=== PATIENT | female | born 2000 | race African-American/Black ===

== ENCOUNTER 2019-09-26 22:17 | Inpatient (IN) ==
[2019-09-26] MEDS ORDERED: TERBUTALINE 1 MG/1 ML VIAL SUBCUT PRN (22:34)
[2019-09-26] MEDS ORDERED: MEPERIDINE 50 MG/1 ML VIAL IV PRN (22:34)
[2019-09-26] MEDS ORDERED: LACTATED RINGERS 500 ML IV PRN (22:34)
[2019-09-26] MEDS ORDERED: ONDANSETRON 4 MG/2 ML VIAL IV PRN (22:34)
[2019-09-26] MEDS ORDERED: LACTATED RINGERS 1,000 ML IV SCH (23:00)
[2019-09-26 23:34] LABS: Basophils % 0.1 % (0.0-0.8); Eosinophils % 0.2 % (0.00-10.9); Hematocrit 33.2 VOL% (35.7-47.0); Hemoglobin 11.4 GM/DL (12.0-16.0); Immature Granulocytes % 0.7 %; Immature Granulocytes Absolute 0.06 #; Lymphocytes # 0.7 10*3/uL (1.4-4.0); Lymphocytes % 8.4 % (21.3-54.2); Mean Corpuscular HGB Conc 34.3 GM/DL (32-36); Mean Corpuscular Volume 93.3 FL (87-102); Mean Platelet Volume 9.8 FL (9.6-12.0); Neutrophils % 83.6 % (38.7-73.9); Platelet Count 231 T/CUMM (130-400); Red Blood Count 3.56 MC/CUMM (3.8-5.5); Red Cell Distribution Width 12.2 % (9.3-17.3); White Blood Count 8.6 T/CUMM (4-12)
[2019-09-27 01:08] LABS: Apearance,Urine CLEAR (Clear); Bilirubin,Urine Negative (Negative); Blood, Urine Negative (Negative); Calcium Oxalate Crystals,Urine Occasional /HPF (Few); Glucose,Urine (UA) Negative (Negative); Ketones,Urine 20 mg/dL (Negative); Mucus,Urine Occasional /LPF (Occasional); Nitrite,Urine Negative (Negative); Protein,Urine Negative; RBC,Urine 3 /HPF (0-4); Squamous Epithelial Cell,Urine Occasional /HPF (0-10); Urine Color Yellow (Yellow); Urine Specific Gravity 1.029 (1.001-1.035); WBC,Urine 3 /HPF (0-6)
[2019-09-27] MEDS ORDERED: ZALEPLON 5 MG CAPSULE PO ONE (03:29)
[2019-09-27] MEDS ORDERED: AMPICILLIN INJ 2,000 MG in SODIUM CHLORIDE 0.9% 100 ML IV ONE (04:00)
[2019-09-27] MEDS: BUTORPHANOL 2 MG/ML VIAL IV PRN ×2 (04:25→07:28)
[2019-09-27] MEDS ORDERED: OXYTOCIN/LR 20 UNIT/1,000 ML BAG IV SCH (07:30)
[2019-09-27] MEDS ORDERED: AMPICILLIN INJ 1,000 MG in SODIUM CHLORIDE 0.9% 100 ML IV SCH (08:00)
[2019-09-27] MEDS ORDERED: LIDOCAINE 1% 50 ML VIAL ONE (08:17)
[2019-09-27] MEDS ORDERED: miSOPROStoL 200 MCG TABLET ONE (08:18)
[2019-09-27] MEDS ORDERED: oxyCODONE/ACETAMINOPHEN 5-325 MG TABLET PO PRN ×2 (10:38)
[2019-09-27] MEDS ORDERED: BISACODYL 10 MG SUPP RECTAL PRN (10:38)
[2019-09-27] MEDS ORDERED: WITCH HAZEL PADS 100/JAR TOP PRN (10:38)
[2019-09-27] MEDS ORDERED: MEASLES/MUMPS/RUBELLA VACCINE 0.5 ML VIAL SUBCUT ONE (10:38)
[2019-09-27] MEDS ORDERED: ACETAMINOPHEN 325 MG TABLET PO PRN (10:38)
[2019-09-27] MEDS ORDERED: OXYTOCIN/LR 20 UNIT/1,000 ML BAG IV ONE (10:38)
[2019-09-27] MEDS ORDERED: LANOLIN 50% CREAM 0.3 OZ TUBE TOP PRN (10:38)
[2019-09-27] MEDS ORDERED: DIPH/TET/ACEL PERT BOOSTER VACCINE 0.5 ML VIAL IM ONE (10:38)
[2019-09-27] MEDS ORDERED: HYDROCORTISONE 2.5% RECTAL CREAM 30 GM TUBE TOP PRN (10:38)
[2019-09-27] MEDS ORDERED: BENZOCAINE 20%/MENTHOL 0.5% SPRAY 56 GM CAN TOP PRN (10:38)
[2019-09-27] MEDS ORDERED: ONDANSETRON 4 MG/2 ML VIAL IV PRN (10:38)
[2019-09-27] MEDS ORDERED: RHO(D) IMMUNE GLOBULIN 300 MCG SYRINGE IM ONE (10:38)
[2019-09-27 10:41] LABS: Cord Venous Blood HCO3 21.2 MMOL/L; Cord Venous Blood PCO2 53.8 MMHG; Cord Venous Blood PO2 23.6 MMHG
[2019-09-27] MEDS: DOCUSATE SODIUM 100 MG CAPSULE PO SCH (21:01)
[2019-09-27] MEDS: IBUPROFEN 800 MG TABLET PO PRN (21:34)
[2019-09-28] MEDS: IBUPROFEN 800 MG TABLET PO PRN ×3 (05:27→21:38)
[2019-09-28 06:07] LABS: Basophils % 0.2 % (0.0-0.8); Eosinophils % 0.1 % (0.00-10.9); Hematocrit 23.6 VOL% (35.7-47.0); Hemoglobin 7.9 GM/DL (12.0-16.0); Immature Granulocytes % 0.5 %; Immature Granulocytes Absolute 0.05 #; Lymphocytes # 0.9 10*3/uL (1.4-4.0); Lymphocytes % 9.9 % (21.3-54.2); Mean Corpuscular HGB Conc 33.5 GM/DL (32-36); Mean Corpuscular Volume 94.4 FL (87-102); Mean Platelet Volume 9.9 FL (9.6-12.0); Monocytes % 9.5 % (1.7-12.7); Neutrophils % 79.8 % (38.7-73.9); Platelet Count 166 T/CUMM (130-400); Red Cell Distribution Width 12.4 % (9.3-17.3); White Blood Count 9.5 T/CUMM (4-12)
[2019-09-28] MEDS: FERROUS SULFATE 325 MG TABLET PO SCH ×2 (09:13→21:38)
[2019-09-28] MEDS: DOCUSATE SODIUM 100 MG CAPSULE PO SCH ×2 (09:13→21:36)
[2019-09-29 07:16] VITALS: BP 114/72
[2019-09-29] MEDS: DOCUSATE SODIUM 100 MG CAPSULE PO SCH (09:15)
[2019-09-29] MEDS: FERROUS SULFATE 325 MG TABLET PO SCH (09:15)
[2019-09-29] MEDS ORDERED: MAGNESIUM HYDROXIDE SUSP 30 ML UDCUP PO PRN (10:18)
== END 2019-09-29 12:35 | disposition home or self-care (01) | DRG 560 ==
LOC: N.LDOUT 22:17 → N.LD 22:22 → N.OB 09-27 13:08
PROVIDERS: ADMIT Specialist; ATTEND Specialist